=== PATIENT | female | born 1985 ===

== ENCOUNTER 2016-10-30 23:10 | Emergency (ER) | payer MEDICAID ==
[2016-10-30 23:28] VITALS: RESP 18
--- NOTE | 2016-10-30 23:30 | C.PDOC ---
History Of Present Illness 31 y/o female, with estimated gestational age of 9 weeks, presents to the ED or evaluation of vaginal bleeding which began at around 2129 today. Patient had positive intrauterine in outpatient ultrasound this week. Patient denies any other associated symptoms. Patient is . VAG BLEED SINCE 2129. EGA 9 WKS. +IUP OUTPT US THIS WEEK. NO OTHER ASSOC SX. EXAM NEG Time Seen by Provider: 10/30/16 23:30 Chief Complaint (Nursing): Abdominal Pain History Per: Patient History/Exam Limitations: no limitations Onset/Duration Of Symptoms: Hrs, Waxing/Waning Associated Symptoms: denies: Fever, Chills, Nausea, Vomiting, Back Pain Additional History Per: Patient Abnormal Vaginal Bleeding: Yes : 3 Para: 2 Past Medical History Reviewed: Historical Data, Nursing Documentation, Vital Signs Vital Signs: Last Vital Signs Temp 98.9 F 10/30/16 23:24 Pulse 84 10/31/16 01:31 Resp 18 10/31/16 01:31 BP 106/78 10/31/16 01:31 Pulse Ox 99 10/31/16 01:31 - Medical History PMH: No Chronic Diseases Surgical History: No Surg Hx Family History: States: Unknown Family Hx - Social History Hx Alcohol Use: No Hx Substance Use: No - Immunization History Hx Tetanus Toxoid Vaccination: No Hx Influenza Vaccination: No Hx Pneumococcal Vaccination: No Review Of Systems Constitutional: Negative for: Fever, Chills Gastrointestinal: Negative for: Nausea, Vomiting Genitourinary: Positive for: Vaginal Bleeding Musculoskeletal: Negative for: Back Pain Physical Exam - Physical Exam Appears: Non-toxic, No Acute Distress Skin: Normal Color, Warm, Dry Head: Atraumatic, Normacephalic Eye(s): bilateral: Normal Inspection Oral Mucosa: Moist Neck: Supple Chest: Symmetrical, No Deformity, No Tenderness Cardiovascular: Rhythm Regular, No Murmur Respiratory: Normal Breath Sounds, No Rales, No Rhonchi, No Wheezing Gastrointestinal/Abdominal: Soft, No Tenderness, No Guarding, No Rebound Extremity: Normal ROM, Capillary Refill (less than 2 seconds ) Neurological/Psych: Oriented x3, Normal Speech, Normal Cognition Gait: Steady ED Course And Treatment - Laboratory Results Result Diagrams: 10/31/16 00:01 10/31/16 00:01 O2 Sat by Pulse Oximetry: 100 (on RA) Pulse Ox Interpretation: Normal Progress Note: labs, Pelvic US, Transvaginal US ordered and reviewed. Reevaluation Time: :52 Reassessment Condition: Improved Disposition Counseled Patient/Family Regarding: Studies Performed, Diagnosis, Need For Followup, Rx Given - Disposition Referrals: Non [facility] Provider, [Primary Care Provider] - Disposition: HOME/ ROUTINE Disposition Time: : Condition: IMPROVED Prescriptions: Nitrofurantoin Macrocrystals [Macrobid] 1 cap PO BID #14 cap Instructions: Urinary Tract Infection in (ED), Threatened Miscarriage (ED) Forms: [employer] (Namibian), Work Excuse Print Language: SOUTH AFRICAN - Clinical Impression Clinical Impression: UTI (urinary tract infection) during , Threatened - Scribe Statement The provider has reviewed the documentation as recorded by the Scribe (Diana Warren) Provider Attestation: All medical record entries made by the Scribe were at my direction and personally dictated by me. I have reviewed the chart and agree that the record accurately reflects my personal performance of the history, physical exam, medical decision making, and the department course for this patient. I have also personally directed, reviewed, and agree with the discharge instructions and disposition.
[2016-10-30 23:58] LABS: RBC URINE 10 /hpf (0-3); TRANSITIONAL EPITHIAL < 1 /hpf (0-3); URINE BACTERIA FEW (<OCC); URINE BILIRUBIN NEGATIVE (NEGATIVE); URINE BLOOD 1+ (NEGATIVE); URINE COLOR Yellow (YELLOW); URINE GLUCOSE (UA) NORMAL (Normal); URINE KETONE NEGATIVE (NEGATIVE); URINE LEUKOCYTE ESTERASE 3+ Leu/uL (Negative); URINE PROTEIN NEGATIVE (NEGATIVE); URINE UROBILINOGEN NORMAL mg/dL (0.2-1.0); WBC URINE 49 /hpf (0-5)
[2016-10-31 00:06] LABS: BASO % 0.4 % (0.0-2.0); EOS # 0.1 K/uL (0.0-0.7); EOS % 1.3 % (0.0-4.0); HEMATOCRIT 35.2 % (34.0-47.0); LYMPH # 2.9 K/uL (1.0-4.3); LYMPH % 27.5 % (20.0-40.0); MEAN CELL VOLUME 87.2 fL (81.0-99.0); MEAN CORPUSCULAR HEMOGLOBIN 30.3 pg (27.0-31.0); MEAN CORPUSCULAR HGB CONC 34.8 g/dL (33.0-37.0); MEAN PLATELET VOLUME 7.6 fL (7.2-11.7); MONO # 0.7 K/uL (0.0-0.8); MONO % 6.9 % (0.0-10.0); NRBC % 0.1 % (0.0-2.0); RED CELL DISTRIBUTION WIDTH 13.7 % (11.5-14.5); WHITE BLOOD COUNT 10.6 K/uL (4.8-10.8)
[2016-10-31 00:26] LABS: ALB/GLOB RATIO 1.4 (1.0-2.1); ALKALINE PHOSPHATASE 60 U/L (38-126); ALT/SGPT 55 U/L (9-52); AST/SGOT 34 U/L (14-36); BILIRUBIN,TOTAL 0.3 mg/dL (0.2-1.3); BLOOD UREA NITROGEN 10 mg/dL (7-17); CALCIUM 9.2 mg/dl (8.6-10.4); CARBON DIOXIDE 22 mmol/L (22-30); CHLORIDE 100 mmol/L (98-107); GFR AFRICAN-AMERICAN > 60; GLUCOSE,RANDOM 69 mg/dL (65-105); POTASSIUM 4.2 mmol/L (3.6-5.2); SODIUM 133 mmol/L (132-148); TOTAL PROTEIN 6.6 g/dL (6.3-8.3)
[2016-10-31 01:31] VITALS: BP 106/78; PULSE 84
--- NOTE | 2016-10-31 01:50 | US ---
EXAM: US First Trimester, Transabdominal EXAM DATE/TIME: 10/31/2016 1:00 AM CLINICAL HISTORY: 31 years old, female; Pain; complicated by abdominal or pelvic pain; Lower; First trimester; Gestational age or lmp: 08/26/16; ; Patient HX: Vag bleeding; Additional info: Vag bleed RO ectopic TECHNIQUE: Real-time transabdominal obstetrical ultrasound of the maternal pelvis and a first trimester with image documentation. COMPARISON: There are no prior studies for comparison. FINDINGS: Gestation: There is a single living intrauterine gestation. There is a heart rate of 171 beats per minute.A yolk sac is present, internal diameter measures 4.5 mm.[place] rump length measures 29 mm Uterus: Uterus measures 13.8 x 6 x 7.5 cm. Cervix measures 4.4 cm in length. Ovaries: Right ovary measures 2.7 a 1.2 x 1.9 cm. Left ovary measures 2.6 x 1.8 x 2.4 cm.There is flow in both ovaries on Doppler imaging. Free fluid: There is no free fluid. IMPRESSION: 9 week 5 day single living intrauterine gestation, estimated date of delivery 05/31/17
[2016-10-31 01:54] VITALS: O2SAT 100
[2016-10-31 02:02] VITALS: TEMP 98.8
== END 2016-10-31 02:02 | disposition home or self-care (01) ==
LOC: C.ER 23:10 → SUPCPDRO 23:10 → C.ER 10-31 02:02
DX: O23.41 Unspecified infection of urinary tract in pregnancy, first trimester (principal); O20.0 Threatened abortion; Z3A.09 9 weeks gestation of pregnancy

== ENCOUNTER 2017-03-17 11:53 | Emergency (ER) | payer MEDICAID ==
[2017-03-17 11:59] VITALS: BMI 28.5
--- NOTE | 2017-03-17 13:06 | C.PDOC ---
History Of Present Illness 32 year old female presents to the ED after being referred from L&D for possible flu symptoms. Patient reports sinus congestion, runny nose, nonproductive cough and subjective fever. Denies abdominal pain and vaginal bleeding. REFERRED FROM L&D POSSIBLE FLU SX. 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 SUBJ FEVER. NO ABD PAIN, VB EXAM NARD HEENT +SINUS MARGO W CLEAR RHINORRHEA LUNGS CTA B/L NO W/R/R GRAVID MDM PT ADVISED LIMITED MEDS CAN TAKE FOR URI DUE TO . TAMIFLU, SUPPORTIVE THERAPY Time Seen by Provider: 03/17/17 12:31 Chief Complaint (Nursing): Flu-like Symptoms History Per: Patient History/Exam Limitations: no limitations Onset/Duration Of Symptoms: Days Current Symptoms Are (Timing): Still Present Associated Symptoms: Fever, Cough, Other (sinus congestion, runny nose ). denies: Sputum Additional History Per: Patient Past Medical History Reviewed: Historical Data, Nursing Documentation, Vital Signs Vital Signs: Last Vital Signs Temp 99.0 F 03/17/17 16:54 Pulse 129 H 03/17/17 16:54 Resp 18 03/17/17 16:54 BP 115/67 03/17/17 16:54 Pulse Ox 99 03/17/17 21:57 - Medical History PMH: No Chronic Diseases Surgical History: No Surg Hx Family History: States: Unknown Family Hx - Social History Hx Alcohol Use: No Hx Substance Use: No - Immunization History Hx Tetanus Toxoid Vaccination: No Hx Influenza Vaccination: No Hx Pneumococcal Vaccination: No Physical Exam - Physical Exam Appears: Non-toxic, Other (no acute respiratory distress ) Skin: Normal Color, Warm, Dry Head: Atraumatic, Normacephalic Eye(s): bilateral: Normal Inspection Ear(s): Bilateral: Normal Nose: Normal, Other (sinus congestion with clear rhinorrhea ) Oral Mucosa: Moist Throat: Normal, No Erythema, No Exudate Neck: Supple Chest: Symmetrical, No Deformity, No Tenderness Cardiovascular: Rhythm Regular, No Murmur Respiratory: Normal Breath Sounds, No Rales, No Rhonchi, No Wheezing Gastrointestinal/Abdominal: Other (gravid ) Extremity: Normal ROM, Capillary Refill (less than 2 seconds ) Neurological/Psych: Oriented x3, Normal Speech, Normal Cognition Gait: Steady ED Course And Treatment O2 Sat by Pulse Oximetry: 99 (on RA) Pulse Ox Interpretation: Normal Medical Decision Making Medical Decision Making: PT ADVISED LIMITED MEDS CAN TAKE FOR URI DUE TO . TAMIFLU, SUPPORTIVE THERAPY Disposition Counseled Patient/Family Regarding: Diagnosis, Need For Followup, Rx Given - Disposition Referrals: Non [facility] Provider, [Primary Care Provider] - Disposition: HOME/ ROUTINE Disposition Time: 15:42 Condition: GOOD Prescriptions: Oseltamivir [Tamiflu] 75 mg PO BID #10 cap Instructions: Influenza (ED), Cold Symptoms in Children (ED) Forms: Work Excuse Print Language: PORTUGUESE - Clinical Impression Clinical Impression: Influenza-like illness, URI (upper respiratory infection) - Scribe Statement The provider has reviewed the documentation as recorded by the Scribe (Diana Warren) Provider Attestation: All medical record entries made by the Scribe were at my direction and personally dictated by me. I have reviewed the chart and agree that the record accurately reflects my personal performance of the history, physical exam, medical decision making, and the department course for this patient. I have also personally directed, reviewed, and agree with the discharge instructions and disposition.
[2017-03-17 13:29] VITALS: O2SAT 99
--- NOTE | 2017-03-17 16:49 | OBHP ---
Datetime: 03/17/2017 16:41 Admit Comment, IP Provider: late note or patient seen 12.35 pm chief complaint-cough and congestion, sore throat, headche, body aches HPI 32 y/o at 28.5 wga iwth c/o body aches, fever, sore throat , cough and congestion sinec 7 pm yesterday.Denies vaginal bleeding or loss of fluid. course DR Mitchell PMH denies PSH csectionx2 OBGYN HX ;menarche at age 11; no hx of std, ovarian cysts Social hx denies tobacco,alcohol or illicit drug use; lives with boyfiend Exam see exam section A/P 32 y/o at 28.5 wga with c/o flu like symptoms -NST reactive -patient sent to er for furtehr evaluation Extremities - PN: Normal Abdomen - PN: Normal Heart - PN: Abnormal General - PN: Normal Contraction Comments Provider: none Comments, ACOG Physical Exam: tachycardia Vital Signs Provider: Reviewed Vital Signs Provider Details: tachycardia FHR Category Provider Fetus A: Category I
[2017-03-17 16:55] VITALS: BP 115/67; PULSE 129; RESP 18; TEMP 99
== END 2017-03-17 15:51 | disposition home or self-care (01) ==
LOC: C.EROB 11:53 → C.ER 11:53 → C.EROB 12:37
DX: O26.893 Other specified pregnancy related conditions, third trimester (principal); J11.1 Influenza due to unidentified influenza virus with other respiratory manifestations; Z3A.28 28 weeks gestation of pregnancy

== ENCOUNTER 2017-04-22 11:56 | Emergency (ER) | payer MEDICAID ==
[2017-04-22] MEDS ORDERED: Lactated Ringer's 1,000 ML IV SCH (13:00)
[2017-04-22] MEDS ORDERED: Dextrose 5%/Lactated Ringer's 1,000 ML IV SCH (13:00)
[2017-04-22 13:08] LABS: SQUAMOUS EPITHIAL 3 /hpf (0-5); URINE AMORPHOUS SEDIMENT RARE /ul (<OCC); URINE BACTERIA OCC (<OCC); URINE BILIRUBIN NEGATIVE (NEGATIVE); URINE BLOOD 2+ (NEGATIVE); URINE CLARITY Hazy (Clear); URINE COLOR Yellow (YELLOW); URINE GLUCOSE (UA) NORMAL (Normal); URINE LEUKOCYTE ESTERASE TRACE Leu/uL (Negative); URINE PROTEIN NEGATIVE (NEGATIVE); URINE UROBILINOGEN NORMAL mg/dL (0.2-1.0)
--- NOTE | 2017-04-22 13:19 | OBDCSUM ---
Datetime: 04/22/2017 13:18 Discharged to, Provider: Home Follow up at, Provider: thursday Follow up in weeks, Provider: clinic Disch Activity Restrictions: Minimize stair-climbing; No sexual activity; Nothing in vagina - Interc ourse, tampons, douche Discharge Comment, Provider: dc home macrobid urine culture f/u in clinic on thursday Discharge Diagnosis Prov Other: 33week uti nst
[2017-04-22 17:52] VITALS: BP 118/75; PULSE 104; TEMP 97.1
[2017-04-23] MEDS ORDERED: Prenatal Multivit/Folic Acid/Iron Tab PO SCH (10:00)
== END 2017-04-22 13:45 | disposition home or self-care (01) ==
LOC: C.EROB 11:56
DX: O26.893 Other specified pregnancy related conditions, third trimester (principal); Z3A.28 28 weeks gestation of pregnancy; R10.30 Lower abdominal pain, unspecified
CPT/HCPCS: 81001; 87086; 99283; J7120

== ENCOUNTER 2017-05-29 06:19 | Inpatient (IN) | payer MEDICAID ==
[2017-05-29 06:25] VITALS: BMI 30.4
--- NOTE | 2017-05-29 07:19 | OBADHP ---
Datetime: 05/29/2017 07:05 Admit Comment, IP Provider: 32 y.o. , LMP 08/26/16, MARIE 06/03/17, EGA 39w 2d, c/o mild uterine ti ghtening. (+) AFM. Denies LOF, VB. care: DR. Hankins, per patient no issues. TReated for B V 1 week ago P Ob: C/S x 2: both males, both weighed 7 1/2 lb; 2003 and 2006. 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 Denies H/O STIs, abnormal Pap, fibroids, ovarian cysts PMH: denies PSH: C/S x 2 NKDA Meds: PNV Soc Hx: denies tobacco, illicit drug or EtOH use. Lives withher childre. ; FOB not involv ed. Homemaker Fam Hx: Mother alive 57 - HTN. Father 30 years ago - "accident". P.E.: as above. WD in NAD. Awake, alert, oriented to time, person and place. Pleasant and tiffanie ative Assessment: 32 y.o. P2, 39w 2d, previous C/S x 2 with uterine contractions. Category 1 tracing. Pa tint for repeat C/S. Patient last ate ta 1800 hours; last drank 2100 hours. Priv Ob to obtain consent s. Patient is clinically stable. Plan: 1) ADmit 2) NPO 3) Admission labs 4) Continuous EFM - Dr. Hankins is aware Pelvic Type - PN: Adequate Extremities - PN: Normal Abdomen - PN: Normal Back - PN: Normal Breast - PN: Not Done Lungs - PN: Normal Heart - PN: Normal Thyroid - PN: Not Done Neurologic - PN: Normal HEENT - PN: Normal General - PN: Normal FHR - Baseline A Provider: 130 Contraction Comments Provider: occasional Comments, ACOG Physical Exam: Abdomen: Gravid. Soft. Non tender All other systesms reviewed and are negative IP Hx Assessment: The History has been Reviewed and is Current Vital Signs Provider: Reviewed IP Chief Complaint: Uterine contractions NICHD Variability Prov Fetus A: Moderate 6-25bpm NICHD Accel Fetus A IP Provider: 15X15 FHR Category Provider Fetus A: Category I NICHD Decel Fetus A IP Provider: None Genitourinary Exam: Not Done DTRs - PN: Normal EGA AdmitDate IP: 39.2 IP Adm Impression: Term, intrauterine IP Admit Plan: Admit to unit; Initiate Section protocol Datetime: 04/22/2017 13:02 IP Chief Complaint Other: Lower abdominal pain and blood in the urine Dilatation, Provider: 0 Effacement, Provider: 0 Station, Provider: -3 Datetime: 03/17/2017 16:41 Vital Signs Provider Details: tachycardia
[2017-05-29 07:52] LABS: HEMOGLOBIN 12.2 g/dL (11.0-16.0); MEAN CELL VOLUME 86.4 fL (81.0-99.0); MEAN CORPUSCULAR HEMOGLOBIN 29.5 pg (27.0-31.0); MEAN CORPUSCULAR HGB CONC 34.2 g/dL (33.0-37.0); RBC 4.13 Mil/uL (3.80-5.20); RED CELL DISTRIBUTION WIDTH 16.2 % (11.5-14.5); WHITE BLOOD COUNT 11.3 K/uL (4.8-10.8)
[2017-05-29] MEDS ORDERED: Sodium Citrate/Citric Acid 15 ml Sol PO ONE (07:56)
[2017-05-29] MEDS ORDERED: Sodium Citrate/Citric Acid 15 ml Sol ONE (07:57)
[2017-05-29 07:58] LABS: SQUAMOUS EPITHIAL 3 /hpf (0-5); URINE BACTERIA RARE (<OCC); URINE BILIRUBIN NEGATIVE (NEGATIVE); URINE BLOOD 2+ (NEGATIVE); URINE CLARITY Hazy (Clear); URINE COLOR Yellow (YELLOW); URINE GLUCOSE (UA) NORMAL (Normal); URINE LEUKOCYTE ESTERASE 1+ Leu/uL (Negative); URINE PROTEIN NEGATIVE (NEGATIVE); URINE UROBILINOGEN NORMAL mg/dL (0.2-1.0)
[2017-05-29] MEDS ORDERED: Lactated Ringer's 1,000 ML IV SCH (08:00)
[2017-05-29 08:02] LABS: ALBUMIN 3.7 g/dL (3.5-5.0); ALT/SGPT 17 U/L (9-52); AST/SGOT 31 U/L (14-36); BLOOD UREA NITROGEN 9 mg/dL (7-17); CALCIUM 9.1 mg/dl (8.6-10.4); GFR AFRICAN-AMERICAN > 60; GFR NON-AFRICAN AMERICAN > 60
[2017-05-29] MEDS ORDERED: Morphine 1 mg/ml preservative-free Inj(Duramorph) ONE (08:09)
[2017-05-29] MEDS ORDERED: Oxytocin 10 Units/ml Inj ONE (08:31)
[2017-05-29] MEDS ORDERED: Oxytocin 20 units in LR 2,000 ML IV ONE (08:31)
[2017-05-29] MEDS ORDERED: ceFAZolin 1 GM in Sodium Chloride 0.9% 100 ML IVPB ONE (09:00)
[2017-05-29] MEDS ORDERED: Phenylephrine 10 mg/ml Inj ONE (09:38)
[2017-05-29] MEDS ORDERED: Bisacodyl 5mg EC Tab PO PRN (12:27)
[2017-05-29] MEDS ORDERED: Lactated Ringer's 1,000 ML IV ONE (12:34)
[2017-05-29] MEDS ORDERED: Hydrocodone/Acetaminophen 5 mg /300 mg Tab PO PRN (16:28)
[2017-05-30] MEDS: Oxycodone/Acetaminophen 5/325 mg Tab PO PRN ×3 (05:35→19:23)
--- NOTE | 2017-05-30 07:01 | OBDS ---
DELIVERY PERSONNEL Delivery Doctor: Liyah Mitchell MD Scrub Nurse: Sarah Ribera Certified Orthotist Practice Manager: Ruben Chapman RN Anesthesiologist: esdras MATERNAL INFORMATION Delivery Anesthesia: Spinal Estimated Blood Loss (ml): 700 Placenta Cultured: No Maternal Complications: None RN Comments: btl done Provider Comments: preop dx: 39.1wks; previous cdx2; desires sterilization postop dx: same proced: repeat LFTCD; modified diana btl surg: topher gordon 1st asst: sridhar anesth: dr dewitt spinal anesth complic: none findings:clear amniotic fluid, viable male, cephalic, 3190g, 9_9.. dense adhesions path: tubal specimens neon to nbn pt to rr in satisfactory condition. LABOR SUMMARY EDC: 06/03/2017 00:00 No. Babies in Womb: 1 Attempted: No Labor Anesthesia: None LABOR INFORMATION Reason for Induction: Not Applicable Oxytocin: N/A Group B Beta Strep: Negative Antibiotics # of Doses: 1 Antibiotics Time of Last Dose: *:40am Steroids Given: None Reason Steroids Not Administered: Not Applicable MEMBRANES Membranes Rupture Method: Artificial Rupture of Membranes: 05/29/2017 09:53 Length of Rupture (hrs): 0.02 Amniotic Fluid Color: Clear Amniotic Fluid Amount: Moderate Amniotic Fluid Odor: Normal STAGES OF LABOR Stage 3 hrs: 0 Stage 3 min: 1 CSECTION DELIVERY Primary Indication: Repeat Elective CSection Urgency: Elective CSection Incidence: Repeat Labor: N/A Elective: Elective CSection Incision: Lower Uterine Transverse Other Sterilization Procedure: BTL BABY A INFORMATION Delivery Date/Time: 05/29/2017 09:54 Method of Delivery: Born in Route : No : N/A Forceps: N/A Vacuum Extraction: N/A Shoulder Dystocia : No SHOULDER DYSTOCIA BABY A Infant Delivery Date/Time: 05/29/2017 09:54 PRESENTATION/POSITION BABY A Presentation: Cephalic Breech Presentation: N/A PLACENTA INFORMATION BABY A Placenta Delivery Time : 05/29/2017 09:55 Placenta Method of Delivery: Expressed Placenta Status: Delivered SCORES BABY A Heart Rate 1 min: >100 bpm Resp Effort 1 min: Good Cry Reflex Irritability 1 min: Cough or Sneeze or Pulls Away Muscle Tone 1 min: Active Motion Color 1 min: Body [employer] [place], Extremities Blue Resuscitation Effort 1 min: N/A SCORE 1 MIN: 9 Heart Rate 5 min: >100 bpm Resp Effort 5 min: Good Cry Reflex Irritability 5 min: Cough or Sneeze or Pulls Away Muscle Tone 5 min: Active Motion Color 5 min: Body [employer] [place], Extremities Blue Resuscitation Effort 5 min: N/A SCORE 5 MIN: 9 INFANT INFORMATION BABY A Gestational Age at Delivery: 39.2 Gestational Status: Term Outcome : Liveborn Infant Condition : Stable Infant Sex: Male IDENTIFICATION/MEDS BABY A ID Band Number: [id number] ID Band Location: Left Leg; Left Arm Sensor Applied: Yes Sensor Number: [id number] Sensor Location : Cord Clamp WEIGHT/LENGTH BABY A Birthweight (gms): 3190 Infant Weight (lb): 7 Infant Weight (oz): 0 Length Inches: 18.50 Infant Length cms: 47.0 CORD INFORMATION BABY A No. Cord Vessels: 3 Nuchal Cord : N/A Cord Blood Taken: Yes Suction: Mouth; Nose
[2017-05-30 07:31] LABS: BASO % 0.2 % (0.0-2.0); EOS % 0.2 % (0.0-4.0); HEMOGLOBIN 11.3 g/dL (11.0-16.0); LYMPH # 1.8 K/uL (1.0-4.3); LYMPH % 12.5 % (20.0-40.0); MEAN CELL VOLUME 86.6 fL (81.0-99.0); MEAN CORPUSCULAR HEMOGLOBIN 29.3 pg (27.0-31.0); MEAN CORPUSCULAR HGB CONC 33.8 g/dL (33.0-37.0); MEAN PLATELET VOLUME 8.8 fL (7.2-11.7); MONO # 0.8 K/uL (0.0-0.8); MONO % 5.4 % (0.0-10.0); NEUT % 81.7 % (50.0-75.0); RBC 3.85 Mil/uL (3.80-5.20); RED CELL DISTRIBUTION WIDTH 16.3 % (11.5-14.5); WHITE BLOOD COUNT 14.7 K/uL (4.8-10.8)
[2017-05-30] MEDS: Prenatal Multivit/Folic Acid/Iron Tab PO SCH (11:28)
--- NOTE | 2017-05-30 19:08 | OP ---
PROCEDURE DATE: 05/29/2017 PREOPERATIVE DIAGNOSES: 1. 39 and 1 week gestation. 2. History of prior delivery x2. 3. Elective repeat section. 4. Desired sterilization. POSTOPERATIVE DIAGNOSES: 1. 39 and 1 week gestation. 2. History of prior delivery x2. 3. Elective repeat section. 4. Desired sterilization. PROCEDURE: 1. Repeat low transverse section. 2. Modified Hilbert bilateral tubal ligation. SURGEON: Stef Hankins MD LIVE TRUCK OPERATOR: Jim Sierra MD TYPE OF ANESTHESIA: Spinal. ANESTHESIOLOGIST: Dr. Garsia. FINDINGS: Showed clear amniotic fluid, a viable male in cephalic presentation with the weight of 3190 grams, and Apgars of 9 and 9, and dense adhesions. PATHOLOGY: Tubal specimen. CATHETER: Elias catheter was placed to drainage. DESTINATION: to Nursery. The patient to recovery room in satisfactory condition. ESTIMATED BLOOD LOSS: 700 mL. COMPLICATIONS: None. INDICATIONS: The patient is a . She is a 32-year-old female, 3, para 2 with the history of prior section x2, who presented for elective repeat section today and desired sterilization. She understands that bilateral tubal ligation is considered a permanent and irreversible procedure and she wishes to proceed with this as well. The patient was offered bilateral salpingectomy, declined, and stated she prefers to just proceed with the routine bilateral tubal ligation procedure. Risks, benefits, and indications were discussed with the patient for repeat section versus and she agreed with the planned procedure and informed consent was obtained for the and sterilization. She also understands that the sterilization is not 100% and that there is a risk of and with this risk and associated increased risk of ectopic which could be life threatening. DESCRIPTION OF PROCEDURE: The patient was taken to the operating room where she underwent her spinal anesthesia. She was then placed in dorsal supine position with a leftward tilt, prepped and draped in routine sterile fashion. A Pfannenstiel skin incision was made at the site of the old scar, which was noted to be at the symphysis pubis. The incision was then extended down to the underlying rectus fascia, which was incised in the midline and extended bilaterally. Dense adhesions of the subcutaneous tissue down to the rectus fascia were noted. The inferior rectus fascial edge was grasped with Kochers, and the underlying rectus muscle was dissected off. The same procedure was performed along the superior rectus fascial edge. The attempt was made to separate the muscle in the midline and open the peritoneal window. There were dense adhesions in the area where the rectus muscles were in the midline. The rectus muscles were elevated on either side with an Allis clamp and a scalpel was used to incise this area. Further digital probing shows further dense adhesions inferior to this area. Digital probing superior to this, an open window was obtained and the abdominal cavity was entered. Dense adhesions were noted inferior to the incision and on either side circumferential to the incision, the adhesions required incision. Upon entering, the incision was then extended inferiorly. A bladder flap could not be created due to the nature of the dense adhesiveness of the bladder to the lower uterine segment. There were dense adhesions of the underlying tissue inferior to the rectus muscle including the peritoneum to the anterior wall of the uterus. A lower uterine transverse incision was made with the knife superior to the bladder flap and the incision was then extended laterally, digitally in a cephalocaudad manner. Digitally, the amniotic membrane was ruptured and clear fluid was noted and was delivered in a routine fashion for cephalic presentation. The mouth and nares were suctioned. The cord was cut and clamped. The was handed off to the awaiting director of quantitative research. Cord blood was collected. The placenta was delivered spontaneously and intact. Of note, because of the dense adhesions of the uterus to the overlying tissue, the uterus could not be exteriorized. The incision of the uterus was cleaned with dry lap and membranes were removed with a ring forceps. The uterine incision was reapproximated with 1-0 chromic in a running locked fashion. Some bleeding was noted along the central area and this was well controlled with an imbricated stitch using 0 Monocryl. Attention was then turned to the tubes and what was noted was due to the dense adhesions, the ampulla and the fimbriae were visualized on both left and right tubes. The right fallopian tube was grasped along the infundibular portion with the Juliana and followed superiorly to the ampulla. An avascular area of the mesosalpinx was noted and the more proximal portion of the tube along the ampulla was tied with 2-0 plain x3. This was followed by another stitch of 2-0 plain placed in the more distal portion of the ampulla and also tied by 2-0 plain x2. Of note, each portion of the right fallopian tube was sequentially and individually tied x2 with 2-0 plain. The tubal specimen was then excised superior to the site of suturing and handed off to be sent to Pathology. The remaining portion of the tube at the site of incision was then inspected. The lumen was visualized and this area was cauterized. Good hemostasis was assured. Attention was then turned to the left fallopian tube, which was grabbed along the mid ampullary portion and tied x2 with 2-0 plain gut. The tubal specimen was excised and the lumen was cauterized. Upon further inspection of the uterus, the uterus along the superior portion of the anterior wall was noted to have been entered and this area was repaired with 1-0 chromic followed by imbricated stitch of Monocryl. The area opened was approximately 1 cm in its longest dimension. Of note, due to the density of these thick adhesions, there was some slight oozing from the areas of scar tissue. FloSeal was placed along the uterine incision and along the dense adhesions in that area. The rectus muscle was reapproximated with 2-0 Vicryl in a running fashion. The rectus fascia was reapproximated with 0 Vicryl in a running fashion beginning in the left lateral, going to midline and another stitch beginning in the right lateral going to the midline. Each suture was sequentially tied. The dense adhesions again were noted of the rectus fascia to the underlying tissue. The wound was irrigated. Good hemostasis was confirmed. 2-0 plain interrupted were placed in the subcutaneous tissue and the skin was reapproximated with vik. Of note, Dr. Sierra was my title assistant. He assisted in surgical entry, surgical hemostasis, delivery of the fetus, and surgical closure. His assistance was essential to the completion of procedure. Stef Hankins MD
[2017-05-31] MEDS: Oxycodone/Acetaminophen 5/325 mg Tab PO PRN ×3 (02:07→12:31)
[2017-05-31] MEDS: Prenatal Multivit/Folic Acid/Iron Tab PO SCH (09:04)
[2017-06-01] MEDS: Prenatal Multivit/Folic Acid/Iron Tab PO SCH (10:01)
[2017-06-01 23:40] VITALS: BP 104/70; PULSE 99; RESP 20; TEMP 97.3; O2SAT 99
== END 2017-06-01 18:45 | disposition home or self-care (01) | DRG 371 ==
LOC: C.EROB 06:19 → C.4D 07:03 → C.4M 13:50
PROVIDERS: ADMIT Obstetrics & Gynecology; ATTEND Obstetrics & Gynecology
PROC: 10D00Z1 Extraction of Products of Conception, Low, Open Approach (ICD-10-PCS; principal; 2017-05-29)
PROC: 0UB70ZZ Excision of Bilateral Fallopian Tubes, Open Approach (ICD-10-PCS; 2017-05-29)
DX: O34.211 Maternal care for low transverse scar from previous cesarean delivery (principal); Z30.2 Encounter for sterilization; Z3A.39 39 weeks gestation of pregnancy; Z37.0 Single live birth

== ENCOUNTER 2018-03-02 10:16 | Emergency (ER) | payer MEDICAID, OTHER ==
[2018-03-02 10:16] VITALS: BMI 30.4
[2018-03-02 10:28] VITALS: BP 109/68; PULSE 87; RESP 20; TEMP 98.2; O2SAT 99
[2018-03-02] MEDS ORDERED: Naproxen 550 mg Tab PO STA (11:25)
[2018-03-02] MEDS ORDERED: Naproxen 550 mg Tab PO ONE (11:35)
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
== END 2018-03-02 11:49 | disposition home or self-care (01) ==
LOC: C.ER 10:16
DX: S39.012A Strain of muscle, fascia and tendon of lower back, initial encounter (principal); V89.2XXA Person injured in unspecified motor-vehicle accident, traffic, initial encounter